=== PATIENT | female | born 1970 | race Caucasian/White ===

== ENCOUNTER 2016-11-18 17:21 | Outpatient (CLI) | payer OTHER ==
[~2016-11-18] VITALS: Ht 154.9 cm; Wt 80.0 kg
[2016-11-18 17:48] VITALS: Ht 154.9 cm; Wt 80.0 kg
[2016-11-18 17:49] VITALS: BP 117/80; PULSE 100; RESP 18
[2016-11-18] MEDS ORDERED: PREN-93 PO (17:50)
--- NOTE | 2016-11-18 18:22 | RADRPT ---
AMENDMENT: 11/18/2016 6:39:14 PM Tato Hughes M.d The placenta is posterior without evidence of abruption or previa. PROCEDURE: OB ultrasound for biophysical profile CLINICAL INDICATION: Biophysical profile. . TECHNIQUE: Multiple sonographic images of the pelvis were obtained. Transabdominal view of the gr avid uterus are available for review. COMPARISON: 08/18/2016 FINDINGS: Single intrauterine gestation. Presentation: Breech breathing movement = 2/2 tone = 2/2 motion = 2/2 KRISTI = 2/2 KRISTI = 18.4 cm heart rate: 129 beats per minute IMPRESSION: Single intrauterine gestation. Biophysical profile 03/09 Breech presentation. RPTAT: AADD .Tato Hughes MD, Date Time Electronically viewed and signed by .Tato Hughes MD, on 11/18/2016 18:40 .B/
--- NOTE | 2016-11-18 19:32 | RADRPT ---
PROCEDURE: Limited obstetric ultrasound CLINICAL INDICATION: SPOTTING TECHNIQUE: Multiple transverse and longitudinal grayscale images of the pelvis were obtained macias sabdominally and endovaginally.. COMPARISON: Biophysical profile study from the same date FINDINGS: There is a single live intrauterine gestation in a cephalic position with a heart rate of 137 bpm. The cervix is closed and measures 4.3 cm in length. Several sub-centimeter Nabothian cysts are ident ified. The placenta is posterior. There is no evidence of a placental abruption or placenta previa. RPTAT: AA IMPRESSION: The cervix is closed and measures 4.3 cm in length. Cephalic presentation. Please note that a biophysical profile study performed approximately 1 hour and 20 minutes prior to this study demonstrated a breech presentation. Physician Dylan Date Time Electronically viewed and signed by To Mustafa Physician on 11/18/2016 19:31 /
[2016-11-18 20:27] LABS: ADD UMIC YES; URINE BILIRUBIN (Dip) NEGATIVE (NEGATIVE); URINE BLOOD (Dip) 1+ (NEGATIVE); URINE COLOR LT. YELLOW (YELLOW); URINE GLUCOSE (Dip) NEGATIVE (NEGATIVE); URINE KETONES (Dip) NEGATIVE (NEGATIVE); URINE LEUKOCYTE ESTERASE (Dip) NEGATIVE (NEGATIVE); URINE NITRITE (Dip) NEGATIVE (NEGATIVE); URINE TOTAL PROTEIN (Dip) NEGATIVE (NEGATIVE); URINE UROBILINOGEN (Dip) 0.2 E.U./dL (0.1-1.0)
[2016-11-18 20:36] LABS: SQUAMOUS EPITHELIAL CELL,UR RARE
--- NOTE | 2016-11-18 21:55 | QN ---
Documentation Comment 46-year-old with IUP at 30 weeks and 4 days with care at [facility] presented with complaint of small amount of spotting today after she urinated when she wiped herself. She denied any leaking of fluid, vaginal bleeding or decreased movement. She had no other complaint. She denies any complication during her course. Physical examination: General appearance: Alert and oriented 4 patient does not appear to be in any acute distress. She is comfortable. Denies any complaints abdomen: Soft, gravid, nontender, no rebound tenderness, Fundal height consistent with gestational age NST: Category 1 and appropriate for gestational age. No contractions on the monitor observed Patient observed in triage for a couple hours and no bleeding noted. Patient denies any spotting anymore. Cervical length 4.3 PROCEDURE: Limited obstetric ultrasound CLINICAL INDICATION: SPOTTING TECHNIQUE: Multiple transverse and longitudinal grayscale images of the pelvis were obtained transabdominally and endovaginally.. COMPARISON: Biophysical profile study from the same date FINDINGS: There is a single live intrauterine gestation in a cephalic position with a heart rate of 137 bpm. The cervix is closed and measures 4.3 cm in length. Several sub-centimeter Nabothian cysts are identified. The placenta is posterior. There is no evidence of a placental abruption or placenta previa. RPTAT: AA IMPRESSION: The cervix is closed and measures 4.3 cm in length. Cephalic presentation. Please note that a biophysical profile study performed approximately 1 hour and 20 minutes prior to this study demonstrated a breech presentation. UA: Negative blood group: Obtained from [facility]: RH + AMENDMENT: 11/18/2016 6:39:14 PM Tato Hughes M.d The placenta is posterior without evidence of abruption or previa. PROCEDURE: OB ultrasound for biophysical profile CLINICAL INDICATION: Biophysical profile. . TECHNIQUE: Multiple sonographic images of the pelvis were obtained. Transabdominal view of the gravid uterus are available for review. COMPARISON: 08/18/2016 FINDINGS: Single intrauterine gestation. Presentation: Breech breathing movement = 2/2 tone = 2/2 motion = 2/2 KRISTI = 2/2 KRISTI = 18.4 cm heart rate: 129 beats per minute IMPRESSION: Single intrauterine gestation. Biophysical profile 03/09 Breech presentation. Assessment: IUP at 30 weeks and 4 days Spotting Rh+, resolved NST category 1 no evidence of labor Cervix is long and closed plan: DC patient home strict labor precaution and kick count discussed Pelvic rest Follow-up in 2-3 days with her OB office Return to triage if she has any uterine contraction, decreased movement, vaginal bleeding or any other concern FÉLIX LOPEZ MD Nov 18, 2016 21:55
--- NOTE | 2016-11-19 00:29 | TRIAGE ---
OB Triage Datetime Report Generated by CPN: 11/19/2016 00:29 Datetime: 11/18/2016 21:34 Stage of : OB Triage Labor Evaluation Frequency: x1 Monitor Mode: External Duration (sec)2399: 80 Quality: Mild Resting Tone Fritch: Relaxed Heart Rate FHR Baseline Rate: 130 Monitor Mode: External US Variability: Moderate 6-25 bpm Accelerations: 15X15 Decelerations: None Category: Category I Datetime: 11/18/2016 19:57 Stage of : OB Triage Datetime: 11/18/2016 19:52 Stage of : OB Triage Labor Evaluation Frequency: 0 Monitor Mode: External Quality: Mild Resting Tone Fritch: Relaxed Heart Rate FHR Baseline Rate: 135 Monitor Mode: External US Variability: Moderate 6-25 bpm Accelerations: 15X15 Decelerations: None Category: Category I Datetime: 11/18/2016 19:20 Stage of : OB Triage Datetime: 11/18/2016 19:17 Monitor Mode: External Monitor Mode: External US Datetime: 11/18/2016 19:13 Stage of : OB Triage Datetime: 11/18/2016 19:09 Stage of : OB Triage Datetime: 11/18/2016 18:50 Stage of : OB Triage Maternal Assessment Level of Consciousness: Fully Conscious DTR's/Clonus: DTRs 1+ Headache: Denies Breath Sounds, Left: Clear and Equal Breath Sounds, Right: Clear and Equal Nausea/Vomiting: Denies RUQ Epigastric Pain: Denies Labor Evaluation Frequency: NONE Monitor Mode: External Resting Tone Fritch: Relaxed Heart Rate FHR Baseline Rate: 125 Monitor Mode: External US Variability: Moderate 6-25 bpm Accelerations: 15X15 Decelerations: None Category: Category I Pain Assessment Pain Presence: None/Denies Pain Type: N/A Vaginal Exam Membrane Status: Intact Datetime: 11/18/2016 17:50 Maternal Assessment Level of Consciousness: Fully Conscious DTR's/Clonus: DTRs 1+ Headache: Denies Blurred Vision: No Respiratory Effort: Unlabored Breath Sounds, Left: Clear and Equal Breath Sounds, Right: Clear and Equal Nausea/Vomiting: Denies RUQ Epigastric Pain: Denies Facial Edema: None Monitor Mode: External Resting Tone Fritch: Relaxed Heart Rate FHR Baseline Rate: 125 Monitor Mode: External US Variability: Moderate 6-25 bpm Accelerations: 10X10 Decelerations: None Category: Category I Pain Assessment Pain Presence: None/Denies Pain Type: N/A Vaginal Exam Membrane Status: Intact Datetime: 11/18/2016 17:45 Assessment Type: Triage Maternal Assessment Level of Consciousness: Fully Conscious DTR's/Clonus: DTRs 2+; No Clonus Headache: Denies Blurred Vision: No Respiratory Effort: Unlabored; Regular Rhythm; Equal Expansion Breath Sounds, Left: Clear and Equal Breath Sounds, Right: Clear and Equal Nausea/Vomiting: Denies RUQ Epigastric Pain: Denies Lower Extremities Edema: None Degree: None Upper Extremities Edema: None Degree: None Facial Edema: None Fall Risk Assessment History of Falling: (0) No Secondary Diagnosis: (0) No Ambulatory Aid: (0) Bedrest/Nurse Assist IV Therapy: (0) No Gait: (0) Normal/Bedrest/Immobile Mental Status: (0) Oriented to Own Ability Fall Score: 0 Fall Risk Score Definition: No Risk: No action required Datetime: 11/18/2016 17:44 EGA: 30.4 Datetime: 11/18/2016 17:30 Time of Arrival: 11/18/2016 17:30 Arrived By: Ambulatory Arrived From: Home Chief Complaint: PT CAME IN Movement: Present Contractions: Denies/Absent Rupture of Membranes: Denies Vaginal Discharge: Denies Recent Sexual Intercouse: Denies Abdominal Trauma: Not Applicable Patient Complaints: Other Additional Patient Complaints: NONE Time Provider Notified: 11/18/2016 17:30 Provider Notified: ANKUR Initial Plan: NST HAFSA BPP placenta
== END 2016-11-18 21:50 | disposition home or self-care (01) ==
LOC: OBT 17:21 → L-D 17:22 → OBT 21:50
PROVIDERS: ATTEND Obstetrics & Gynecology
DX: O26.853 Spotting complicating pregnancy, third trimester (principal); Z3A.30 30 weeks gestation of pregnancy; O09.513 Supervision of elderly primigravida, third trimester; O26.893 Other specified pregnancy related conditions, third trimester; Z67.90 Unspecified blood type, Rh positive
CPT/HCPCS: 76817; 76818; 81001; Z7500; 81003; G0463

== ENCOUNTER 2016-12-25 11:22 | Outpatient (CLI) | payer MEDICAID, OTHER ==
[~2016-12-25] VITALS: Ht 154.9 cm; Wt 83.4 kg
[2016-12-25 11:20] VITALS: Ht 154.9 cm; Wt 83.4 kg
[2016-12-25 11:21] VITALS: BP 114/71; PULSE 101; RESP 20
[~2016-12-25 11:22] MED LIST: PREN-93 PO
[2016-12-25] MEDS ORDERED: CALC600T11 PO (11:23)
[2016-12-25] MEDS ORDERED: FERR325C PO (11:23)
--- NOTE | 2016-12-25 11:56 | RADRPT ---
PROCEDURE: Obstetrical ultrasound CLINICAL INDICATION: growth, pain TECHNIQUE: Multiple sonographic images of the pelvis were obtained. The images were reviewed on a PACS workstation. COMPARISON: Obstetrical ultrasound from 11/18/2016 FINDINGS: The cervix is not well visualized. There is a single viable intrauterine gestation. Cardiac activity is present with 136 beats per minute. There is a vertex presentation. The placenta is posterior. There is no evidence for an abruption or placenta previa. There is a subjectively normal amount of amniotic fluid. Measurements were made in order to determine age. The results are as follows (cm): BPD =8.71 HC =31.40 AC =31.78 FL =6.50 Estimated gestational age by ultrasound of approximately 34 weeks, 6 days. The estimated date of delivery by ultrasound is 01/30/2017. Estimated gestational age by LMP of approximately 35 weeks, 6 days. The estimated date of delivery by LMP is 01/23/2017. EFW = 2572 grams (27th percentile) IMPRESSION: Single viable intrauterine gestation of approximately 34 weeks, 6 days . The estimated date of delivery is 01/30/2017 . Dating by ultrasound is within 1 week of dating by LMP. Cephalic presentation. Estimated weight is in the 27th percentile. RPTAT: EE Physician Dylan Date Time Electronically viewed and signed by Physician Dylan on 12/25/2016 11:56 LATASHA
--- NOTE | 2016-12-25 12:32 | RADRPT ---
PROCEDURE: US OB biophysical profile. CLINICAL INDICATION: evaluation TECHNIQUE: Multiple sonographic images of the pelvis were obtained. The images were reviewed on a PACS workstation. COMPARISON: Obstetrical ultrasound from 11/18/2016 FINDINGS: There is a single viable intrauterine gestation. Cardiac activity is present with 159 beats per min karthikeyan. There is a vertex presentation. The placenta is posterior. There is no evidence of placental abruption. There is a normal amount of amniotic fluid with an KRISTI = 20.0 cm. Biophysical profile: movement 2/2 tone 2/2. breathing 2/2 KRISTI 2/2 Total 03/09 RPTAT: AA . IMPRESSION: Normal biophysical profile. Physician Dylan Date Time Electronically viewed and signed by Physician Dylan on 12/25/2016 12:32 /
--- NOTE | 2016-12-25 12:47 | TRIAGE ---
OB Triage Datetime Report Generated by CPN: 12/25/2016 12:47 Datetime: 12/25/2016 12:41 Stage of : OB Triage Labor Evaluation Frequency: 0 Monitor Mode: External Duration (sec)2399: 0 Quality: Mild Contraction Comments: PT DENIES UC'S Heart Rate FHR Baseline Rate: 135 Monitor Mode: External US Variability: Moderate 6-25 bpm Accelerations: 15X15 Decelerations: None Category: Category I Datetime: 12/25/2016 12:04 Labor Evaluation Frequency: 0 Monitor Mode: External Resting Tone [place]: Relaxed Contraction Comments: PT DENIES UC'S NO UC'S NOTED AT THIS TIME Heart Rate FHR Baseline Rate: 145 Monitor Mode: External US Variability: Moderate 6-25 bpm Accelerations: 10X10 Decelerations: None Category: Category I Datetime: 12/25/2016 11:27 Maternal Assessment Level of Consciousness: Fully Conscious DTR's/Clonus: DTRs 2+; No Clonus Headache: Denies Blurred Vision: No Respiratory Effort: Unlabored; Regular Rhythm; Equal Expansion Breath Sounds, Left: Clear and Equal Breath Sounds, Right: Clear and Equal Nausea/Vomiting: Denies RUQ Epigastric Pain: Denies Facial Edema: None Fall Risk Assessment History of Falling: (0) No Secondary Diagnosis: (0) No Ambulatory Aid: (0) Bedrest/Nurse Assist IV Therapy: (0) No Gait: (0) Normal/Bedrest/Immobile Mental Status: (0) Oriented to Own Ability Fall Score: 0 Fall Risk Score Definition: No Risk: No action required Datetime: 12/25/2016 11:26 Time of Arrival: 12/25/2016 11:11 EGA: 35.6 Arrived By: Ambulatory Arrived From: Home Chief Complaint: came in with orders for bpp/efw Movement: Present Contractions: Denies/Absent Rupture of Membranes: Denies Vaginal Bleeding: None Vaginal Discharge: Denies Recent Sexual Intercouse: Denies Abdominal Trauma: Not Applicable Patient Complaints: None Time Provider Notified: 12/25/2016 12:45 Provider Notified: DR. PASCUAL Initial Plan: nst , bpp, efw Maternal Assessment Level of Consciousness: Fully Conscious DTR's/Clonus: DTRs 2+; No Clonus Headache: Denies Blurred Vision: No Respiratory Effort: Unlabored; Regular Rhythm; Equal Expansion Breath Sounds, Left: Clear and Equal Breath Sounds, Right: Clear and Equal Nausea/Vomiting: Denies RUQ Epigastric Pain: Denies Facial Edema: None Fall Risk Assessment History of Falling: (0) No Secondary Diagnosis: (0) No Ambulatory Aid: (0) Bedrest/Nurse Assist IV Therapy: (0) No Gait: (0) Normal/Bedrest/Immobile Mental Status: (0) Oriented to Own Ability Fall Score: 0 Fall Risk Score Definition: No Risk: No action required Datetime: 11/18/2016 17:45 Fall Score: 0 Fall Risk Score Definition: No Risk: No action required Datetime: 11/18/2016 17:44 EGA: 30.4
--- NOTE | 2016-12-25 14:13 | TRIAGE ---
OB Triage Datetime Report Generated by CPN: 12/25/2016 14:13 Datetime: 12/25/2016 14:00 Frequency: 0 Duration (sec)2399: 0 Contraction Comments: PT DENIES UC'S NO UC'S NOTED FHR Baseline Rate: 130 Monitor Mode: External US Variability: Moderate 6-25 bpm Accelerations: 15X15 Decelerations: None Category: Category I
--- NOTE | 2016-12-27 15:40 | QN ---
Documentation Comment Late entry 46 years old female 1 para 0 EDC January 23 referred to triage for ultrasound evaluation of growth JALYN PASCUAL MD December 27, 2016 15:40
== END 2016-12-25 14:20 | disposition home or self-care (01) ==
LOC: OBT 11:22 → L-D 11:22 → OBT 14:20
PROVIDERS: ATTEND Obstetrics & Gynecology
DX: O26.893 Other specified pregnancy related conditions, third trimester (principal); O09.523 Supervision of elderly multigravida, third trimester; Z3A.35 35 weeks gestation of pregnancy
CPT/HCPCS: 76815; 76818; Z7500; G0463

== ENCOUNTER 2017-01-25 11:18 | Outpatient (CLI) | payer OTHER ==
[~2017-01-25] VITALS: Ht 154.9 cm; Wt 85.7 kg
[~2017-01-25 11:18] MED LIST changes: +CALC600T11 PO; +FERR325C PO
[2017-01-25 11:58] VITALS: Ht 154.9 cm; Wt 85.7 kg
[2017-01-25 11:59] VITALS: BP 111/70; PULSE 84; RESP 18
--- NOTE | 2017-01-25 12:47 | RADRPT ---
PROCEDURE: OB ultrasound for biophysical profile CLINICAL INDICATION: Contractions TECHNIQUE: Multiple sonographic images of the pelvis were obtained. Transabdominal views of the g ravid uterus are available for review. The images were reviewed on a PACS workstation. COMPARISON: None FINDINGS: breathing movement = 2/2 tone = 2/2 motion = 2/2 KRISTI = 2/2 KRISTI = 11.1 cm Single live intrauterine with cardiac activity of 129 bpm. position is cephal ic. The placenta is posterior. IMPRESSION: 1. Single live intrauterine gestation. 2. Biophysical profile = 88. 3. KRISTI = 11.1 cm. RPTAT: HH .Nini Calvillo MD, MD Date Time Electronically viewed and signed by .Nini Calvillo MD, on 01/25/2017 12:47 .G/
--- NOTE | 2017-01-25 13:43 | RADRPT ---
PROCEDURE: Obstetrical ultrasound CLINICAL INDICATION: MACROSOMIA, contractions TECHNIQUE: Multiple sonographic images of the pelvis were obtained. The images were reviewed on a PACS workstation. COMPARISON: Obstetrical ultrasound from 12/25/2016 FINDINGS: The cervix is not well visualized. There is a single viable intrauterine gestation. Cardiac activity is present with 144 beats per minute. There is a vertex presentation. The placenta is posterior. There is no evidence for an abruption or placenta previa. There is a normal amount of amniotic fluid with an KRISTI = 11.1 cm. Measurements were made in order to determine age. The results are as follows (cm): BPD =9.07 HC =32.96 AC =35.12 FL =7.27 Estimated gestational age by ultrasound of approximately 37 weeks, 5 days. The estimated date of delivery by ultrasound is 02/10/2017. Estimated gestational age by LMP of approximately 40 weeks, 1 day. The estimated date of delivery by LMP is 01/24/2017. EFW = 3416 grams (31st percentile) IMPRESSION: Single viable intrauterine gestation of approximately 37 weeks, 5 days . The estimated date of delivery is 02/10/2017 . Dating by ultrasound is within 17 days of dating by LMP. Cephalic presentation. Normal KRISTI. Estimated weight is in the 31st percentile. RPTAT: EE Physician Dylan Date Time Electronically viewed and signed by Physician Dylan on 01/25/2017 13:42 /
== END 2017-01-25 15:05 | disposition home or self-care (01) ==
LOC: OBT 11:18 → L-D 11:20 → OBT 15:05
PROVIDERS: ATTEND Obstetrics & Gynecology
DX: O62.8 Other abnormalities of forces of labor (principal); O09.523 Supervision of elderly multigravida, third trimester; Z3A.40 40 weeks gestation of pregnancy
CPT/HCPCS: 76815; 76818; Z7500; G0463

== ENCOUNTER 2017-01-27 09:00 | Inpatient (IN) | payer OTHER ==
[~2017-01-27] VITALS: Ht 154.9 cm; Wt 84.6 kg
[2017-01-28 00:25] VITALS: BP 9/60; PULSE 56; RESP 18
[2017-01-28 06:40] VITALS: BP 110/73; PULSE 99; RESP 16; Ht 154.9 cm; Wt 84.6 kg
[2017-01-28] MEDS ORDERED: CEFAZOLIN 2 GM/50 ML (PMX) 50 ML IV SCH (07:30)
[2017-01-28] MEDS ORDERED: MISOPROSTOL 200 MCG TAB PR PRN ×2 (07:30→14:30)
[2017-01-28] MEDS ORDERED: OXYTOCIN 30 UNITS/LR 500 ML IV PRN ×2 (07:30→14:30)
[2017-01-28] MEDS ORDERED: METHYLERGONOVINE 0.2 MG INJ IM PRN ×2 (07:30→14:30)
[2017-01-28] MEDS ORDERED: CARBOPROST 250 MCG INJ IM PRN ×2 (07:30→14:30)
[2017-01-28] MEDS ORDERED: OXYTOCIN 30 UNITS/LR 500 ML IV SCH ×2 (07:30→14:09)
[2017-01-28] MEDS: LACTATED RINGER'S 1,000 ML IV SCH ×2 (07:40→08:52)
[2017-01-28 07:59] LABS: ADD SCAN DIFF NO
[2017-01-28 08:04] LABS: BASOPHILS % 0.3 % (0.0-2.0); EOSINOPHILS # 0.1 10^3/ul (0.0-0.5); EOSINOPHILS % 0.8 % (0.0-7.0); HEMATOCRIT 38.5 % (37.0-47.0); HEMOGLOBIN 13.3 g/dl (12.0-16.0); LYMPHOCYTES # 2.8 10^3/ul (0.8-2.9); LYMPHOCYTES % 27.3 % (15.0-51.0); MEAN CORPUSCULAR HEMOGLOBIN 32.8 pg (29.0-33.0); MEAN CORPUSCULAR HGB CONC 34.5 g/dl (32.0-37.0); MEAN CORPUSCULAR VOLUME 95.1 fl (82.0-101.0); MEAN PLATELET VOLUME 10.7 fl (7.4-10.4); MONOCYTE # 0.8 10^3/ul (0.3-0.9); MONOCYTES % 7.6 % (0.0-11.0); NEUTROPHIL # 6.6 10^3/ul (1.6-7.5); NEUTROPHILS % 63.6 % (39.0-77.0); PLATELET COUNT 221 10^3/UL (140-415); RED BLOOD COUNT 4.05 10^6/ul (4.20-5.40); RED CELL DISTRIBUTION WIDTH 13.1 % (11.5-14.5); WHITE BLOOD COUNT 10.4 10^3/ul (4.8-10.8)
[2017-01-28 08:22] LABS: INR 0.93; PROTIME 12.5 Sec (12.2-14.2)
[2017-01-28 08:23] LABS: PARTIAL THROMBOPLASTIN TIME 26.7 Sec (25.0-35.0)
[2017-01-28] MEDS ORDERED: PHENYLephrine (100 MCG/ML) 5ML SYG ONE (09:05)
[2017-01-28] MEDS ORDERED: morphine SULFATE/PF (10 MG/10 ML) INJ ONE (09:05)
[2017-01-28] MEDS ORDERED: FENTAnyl 50 MCG/ML VIAL ONE (09:05)
[2017-01-28] MEDS ORDERED: HYDROmorphONE 1 MG/ML SYG IV PRN ×2 (09:30)
[2017-01-28] MEDS ORDERED: ONDANSETRON 4 MG INJ IV PRN (09:30)
[2017-01-28] MEDS ORDERED: ZOLPIDEM 5 MG TAB PO PRN (09:30)
[2017-01-28] MEDS ORDERED: KETOROLAC 30 MG INJ IV PRN (09:30)
[2017-01-28] MEDS ORDERED: DIPHENHYDRAMINE 50 MG INJ IV PRN (09:30)
[2017-01-28] MEDS ORDERED: NALOXONE (0.4 MG/ML) INJ IV PRN (09:30)
[2017-01-28] MEDS ORDERED: DEXAMETHASONE 4 MG/ML 1 ML INJ ONE (09:44)
[2017-01-28] MEDS ORDERED: ONDANSETRON 4 MG INJ ONE (09:45)
--- NOTE | 2017-01-28 09:50 | HP ---
Date/Time of Note Date/Time of Note DATE: 01/28/17 TIME: 09:32 OB - History Hx of Present Free Text/Dictation This is a 45 years old female 40 weeks and 5 days 1 para 0 with a EDC of January 23, 2017 admitted to [facility] with request for elective primary section patient has been counseled regarding this procedure and suggested a trial of labor with induction, patient declined after informing her of complication of the section including bowel bladder injury infection hemorrhage and hematoma ,she would like to proceed with this operation This patient has been under the care of the [facility] and her was not complicated with gestational diabetes -induced hypertension or any other medical or surgical conditions [employer] history [place] at age 14 history of regular periods. Allergy denies allergy to any known medication Social habit denies a smoking drinking or using illicit drugs Review of system within normal Physical examination 5 feet 1 187 pounds total weight gain during the 47 temperature 98.4 pulse 90 respirations 16 blood pressure 132/83 Head ears nose and throat negative Neck supple no thyromegaly Lungs clear to P&A Heart normal sinus rhythm no murmur Abdomen fundal height 37 cm from symphysis pubis heart rate category 1 Pelvic examination; normal Martius introitus normal vagina cervix closed thick presenting part vertex ballotable ,sharp pubic arch less than 60 angle Extremities no edema Impression intrauterine at 40 weeks 5 day patient declined trial of labor with induction requesting elective delivery, she was counseled regarding the complication of the surgery including bowel and bladder injury infection wound she would like to proceed with the operation. Estimated Due Date: Jan 23, 2017 : 1 Para: 0 Care: Good Care Ultrasounds: Normal mid trimester US Obstetrical Complications: None Past Family/Social History * Past Medical, Surgical, Family and Obstetric Histories reviewed from chart. Rubella: immune RPR/VDRL: Negative GBS Status: Negative HBsAG: Negative OB Admission Exam Vital Signs Vital Signs Vital Signs Date Time Temp Pulse Resp B/P Pulse Ox O2 Delivery O2 Flow Rate FiO2 01/28/17 06:40 98.4 99 16 110/73 Room Air Physical Exam HEENT: WNL Heart: Rhythm Normal Lungs: Clear, Equal Abdomen: WNL Extremities: Normal Reflexes: Normal Cervical Dilatation: None Effacement: 0% Station: Ballotable Membranes: Intact Heart Rate: 130's Decelerations: No Decelerations Varibility: Moderate Contractions on Admission: None Last 72 hours Lab Results CBC & BMP 01/28/17 07:35 OB Assessment/Plan Reason for admission: other ( 40 weeks 5 days declined trial of labor requested elective delivery) Plan: Section JALYN PASCUAL MD Jan 28, 2017 09:44
--- NOTE | 2017-01-28 10:48 | OPR ---
Operative Report Planned Procedure Free Text/Dictation 46 years old female 1 para 0 EDC January 23, 2017 declined trial of labor request for elective primary she has been counseled regarding the complication of the section including but not limited to bowel and bladder injury infection wound hemorrhage and hematoma she would like to proceed with this operation Procedure date Jan 28, 2017 Procedure(s) Primary Performed by: JALYN PASCUAL MD Assisting provider: LEILANI VANN MD Anesthesiologist: ABEBA WADDELL Pre-procedure diagnosis 40 weeks 4 days patient declined trial of labor request elective section Anesthesia Type: spinal Procedure Description Under satisfactory spinal anesthesia, the patient was prepped and draped and placed in a supine position, tilted to the left. Pfannenstiel incision was made , carried through the subcutaneous tissue. Bleeders brought under control with electrocautery. Fascia incised to the length of the incision. Rectus muscles from the fascia, divided in midline. Peritoneum exposed, entered through a transverse incision. Exploration of abdomen revealed gravid uterus at term normal-appearing tubes and ovaries bladder flap was developed, Transverse incision was made in the lower segment of the uterus. Amniotic sac ruptured. , [Clear] amniotic fluid noted. Live baby boy was delivered from occiput posterior Nasal oropharyngeal suction was performed, baby was handed to the team for immediate attention patient received 20 units of Pitocin. placenta delivered manually inspected it was intact. Uterine cavity cleaned with wet sponge and drainage established. Uterus closed in 2 layers using [#1 Monocryl] in continuous fashion. Peritoneal cavity irrigated with warm saline. Sponge, needle and instrument count reported to be correct. Abdominal peritoneum closed with 2-0 chromic catgut] continuously. Rectus muscle approximated with [interrupted 2-0 chromic catgut]. Fascia closed with [#0 PDS] subcutaneous tissue approximated with several interrupted 2-0 chromic catgut, skin closed with brian. Estimated blood loss 600 mL. Urine bag contained [200] mL of clear urine. Post-Procedure Post-procedure diagnosis Primary Findings: Live Baby boy [], Apgars 8 and [9], weight [], position [occiput posterior], [ ] presentation [vertex] nuchal cord 1 Complications: None Pt Condition post procedure: stable Physician Certification I, the undersigned physician, hereby certify that I have discussed the procedure described in this consent form with this patient (or the patient's legal human resources representative), including: * The risk and benefits of the procedure; * Any adverse reactions that may reasonably be expected to occur; * Any alternative efficacious methods of treatment which may be medically viable ; * The potential problems that may occur during recuperation; * Potential for blood transfusion and associated risks/benefits; and * Any research or economic interest I may have regarding this treatment. I further certify that the patient/legally responsible person was encouraged to ask question and that all questions were answered. JALYN PASCUAL MD Jan 28, 2017 10:40
[2017-01-28] MEDS ORDERED: ACETAMINOPHEN/CODEINE #3 TAB PO PRN ×2 (14:30)
[2017-01-28] MEDS ORDERED: OXYCODONE/ACETAMINOPHEN (5/325) TAB PO PRN (14:30)
[2017-01-28] MEDS ORDERED: LANOLIN 7 GM TUBE TOP PRN (14:30)
[2017-01-28] MEDS ORDERED: CEFAZOLIN 1 GM/50 ML (PMX) 50 ML IVPB SCH (14:30)
[2017-01-28 14:46] VITALS: BP 139/73; RESP 19
[2017-01-28 15:11] VITALS: BP 125/75; PULSE 62; RESP 20
[2017-01-28 15:45] VITALS: BP 118/67; PULSE 57; RESP 20
[2017-01-28 20:00] VITALS: BP 108/67; PULSE 62; RESP 18
[2017-01-29] MEDS ORDERED: LACTATED RINGER'S 1,000 ML IV SCH (01:00)
[2017-01-29 03:30] VITALS: BP 101/65; PULSE 59; RESP 18
[2017-01-29 08:11] LABS: BASOPHILS % 0.3 % (0.0-2.0); EOSINOPHILS % 0.3 % (0.0-7.0); HEMOGLOBIN 11.9 g/dl (12.0-16.0); LYMPHOCYTES # 2.7 10^3/ul (0.8-2.9); LYMPHOCYTES % 21.7 % (15.0-51.0); MEAN CORPUSCULAR HEMOGLOBIN 32.8 pg (29.0-33.0); MEAN CORPUSCULAR VOLUME 96.4 fl (82.0-101.0); MEAN PLATELET VOLUME 10.8 fl (7.4-10.4); MONOCYTES % 8.3 % (0.0-11.0); NEUTROPHIL # 8.5 10^3/ul (1.6-7.5); NEUTROPHILS % 68.9 % (39.0-77.0); PLATELET COUNT 203 10^3/UL (140-415); RED BLOOD COUNT 3.63 10^6/ul (4.20-5.40); WHITE BLOOD COUNT 12.3 10^3/ul (4.8-10.8)
[2017-01-29 08:16] LABS: ADD SCAN DIFF NO
[2017-01-29 08:45] VITALS: BP 99/69; PULSE 62; RESP 19
[2017-01-29] MEDS: SENNA/DOCUSATE NA (8.6MG/50MG) TAB PO SCH ×2 (10:08→20:48)
[2017-01-29] MEDS: OXYCODONE/ACETAMINOPHEN (5/325) TAB PO PRN ×2 (10:09→17:55)
[2017-01-29] MEDS: IBUPROFEN 600 MG TAB PO SCH ×2 (12:57→17:54)
[2017-01-29 16:08] VITALS: BP 112/73; PULSE 68; RESP 20
--- NOTE | 2017-01-29 16:23 | PN ---
Date/Time of Note Date/Time of Note DATE: 01/29/17 TIME: 16:22 OB Subjective Subjective Subjective Post day 1 Afebrile abdomen soft mildly distended bowel sounds lochia moderate extremity normal ambulation encouraged diet advanced as tolerated Laboratory Tests Test 01/29/17 07:03 White Blood Count 12.310^3/ul Red Blood Count 3.6310^6/ul Hemoglobin 11.9g/dl Hematocrit 35.0% Mean Corpuscular Volume 96.4fl Mean Corpuscular Hemoglobin 32.8pg Mean Corpuscular Hemoglobin Concent 34.0g/dl Red Cell Distribution Width 13.0% Platelet Count 77823^3/UL Mean Platelet Volume 10.8fl Neutrophils % 68.9% Lymphocytes % 21.7% Monocytes % 8.3% Eosinophils % 0.3% Basophils % 0.3% Nucleated Red Blood Cells % 0.0/100WBC Neutrophils # 8.510^3/ul Lymphocytes # 2.710^3/ul Monocytes # 1.010^3/ul Eosinophils # 0.010^3/ul Basophils # 0.010^3/ul Nucleated Red Blood Cells # 0.010^3/ul Current Medications Medications (Trade) Dose Ordered Sig/Francie Route PRN Reason Start Time Stop Time Status Last Admin Dose Admin Lactated Ringer's 1,000 ml @ 125 mls/hr Q8H IV 01/28/17 07:22 01/28/17 14:12 DC 01/28/17 08:52 Cefazolin Sodium/ Dextrose 50 ml @ 100 mls/hr ONCE IV 01/28/17 07:30 01/28/17 14:12 DC Oxytocin/Lactated Ringer's 500 ml @ 125 mls/hr ONCE IV 01/28/17 07:30 01/28/17 14:12 DC 01/28/17 11:44 Oxytocin/Lactated Ringer's 500 ml @ 0 mls/hr ONCE PRN IV For Hemorrhage Management 01/28/17 07:30 Cancel Methylergonovine Maleate (Methergine) 0.2 mg ONCE PRN IM VAGINAL BLEEDING 01/28/17 07:30 Cancel Carboprost Tromethamine (Hemabate) 250 mcg ONCE PRN IM VAGINAL BLEEDING 01/28/17 07:30 Cancel Misoprostol (Cytotec) 1,000 mcg ONCE PRN [place] VAGINAL BLEEDING 01/28/17 07:30 Cancel Morphine Sulfate (Duramorph) 10 mg STK-MED ONCE .ROUTE 01/28/17 09:05 01/28/17 09:06 DC Fentanyl (Sublimaze) 100 mcg STK-MED ONCE .ROUTE 01/28/17 09:05 01/28/17 09:06 DC Phenylephrine HCl (Virgilio-Synephrine Inj Syg) 500 mcg STK-MED ONCE .ROUTE 01/28/17 09:05 01/28/17 09:06 DC Naloxone HCl (Narcan) 0.1 mg Q2M PRN IV FOR RESP RATE 8 OR LESS 01/28/17 09:30 01/28/17 14:12 DC Ketorolac Tromethamine (Toradol) 30 mg Q6H PRN IV PAIN 01/28/17 09:30 01/28/17 14:14 DC Hydromorphone HCl (Dilaudid) 0.2 mg Q3H PRN IV PAIN LEVEL 1-5 01/28/17 09:30 01/28/17 14:14 DC Hydromorphone HCl (Dilaudid) 0.4 mg Q3H PRN IV PAIN LEVEL 6-10 01/28/17 09:30 01/28/17 14:14 DC Diphenhydramine HCl (Benadryl) 25 mg Q6H PRN IV ITCHING 01/28/17 09:30 01/28/17 14:14 DC Ondansetron HCl (Zofran Inj) 4 mg Q6H PRN IV NAUSEA AND/OR VOMITING 01/28/17 09:30 01/28/17 14:14 DC Zolpidem Tartrate (Ambien) 5 mg HS MAY REPEAT X 1 PRN PO INSOMNIA 01/28/17 09:30 01/28/17 14:14 DC Miscellaneous Information (* Miscellaneous Pharmacy Order) Duramorph: .2 mg Spi... GIVEN XX 01/28/17 09:30 01/28/17 14:12 DC Dexamethasone (Decadron) 4 mg STK-MED ONCE .ROUTE 01/28/17 09:44 01/28/17 09:45 DC Ondansetron HCl (Zofran Inj) 4 mg STK-MED ONCE .ROUTE 01/28/17 09:45 01/28/17 09:46 DC Acetaminophen/ Codeine Phosphate (Tylenol No.3) 1 tab Q4H PRN PO PAIN LEVEL 4-6 01/28/17 14:30 Acetaminophen/ Codeine Phosphate (Tylenol No.3) 2 tab Q4H PRN PO PAIN LEVEL 7-10 01/28/17 14:30 Oxycodone/ Acetaminophen (Percocet (5/ 325)) 1 tab Q4H PRN PO PAIN LEVEL 4-6 01/28/17 14:30 01/29/17 10:09 Oxycodone/ Acetaminophen (Percocet (5/ 325)) 2 tab Q4H PRN PO PAIN LEVEL 7-10 01/28/17 14:30 Ibuprofen (Motrin) 600 mg Q6 PO 01/29/17 12:00 01/29/17 12:57 Simethicone (Mylicon) 160 mg Q8H PRN PO DISTENSION/GAS/BLOATING 01/28/17 14:30 Senna/Docusate Sodium (Senokot-S) 1 tab BID PO 01/29/17 09:00 01/29/17 10:08 Lanolin (Gaw-V-Vsphsq) 1 applic BEDSIDE MEDICATION PRN TOP BEDSIDE FOR TABITHA TO NIPPLES 01/28/17 14:30 Diphtheria/ Tetanus/Acell Pertussis 0.5 ml 0.5 ml ONCE ONCE IM* 01/31/17 09:00 01/31/17 09:01 Oxytocin/Lactated Ringer's 500 ml @ 0 mls/hr ONCE PRN IV For Hemorrhage Management 01/28/17 14:30 01/28/17 15:52 Methylergonovine Maleate (Methergine) 0.2 mg ONCE PRN IM VAGINAL BLEEDING 01/28/17 14:30 Carboprost Tromethamine (Hemabate) 250 mcg ONCE PRN IM VAGINAL BLEEDING 01/28/17 14:30 Misoprostol 1000 mcg 1,000 mcg ONCE PRN [place] VAGINAL BLEEDING 01/28/17 14:30 Cefazolin Sodium 50 ml @ 100 mls/hr ONCE IVPB 01/28/17 14:30 01/28/17 14:59 DC 01/28/17 15:52 Oxytocin/Lactated Ringer's 500 ml @ 125 mls/hr Q4H IV 01/28/17 14:09 01/29/17 10:05 DC 01/28/17 20:46 Lactated Ringer's (Lr) 1,000 ml @ 125 mls/hr Q8H IV 01/29/17 01:00 01/29/17 10:05 DC 01/29/17 00:53 JALYN PASCUAL MD Jan 29, 2017 16:23
[2017-01-29 20:45] VITALS: BP 117/69; PULSE 67; RESP 18
[2017-01-30] MEDS: IBUPROFEN 600 MG TAB PO SCH ×5 (00:02→23:59)
[2017-01-30 04:00] VITALS: BP 109/62; PULSE 61; RESP 18
[2017-01-30 07:30] VITALS: BP 112/67; PULSE 73; RESP 20
[2017-01-30] MEDS: OXYCODONE/ACETAMINOPHEN (5/325) TAB PO PRN (10:01)
[2017-01-30] MEDS: SENNA/DOCUSATE NA (8.6MG/50MG) TAB PO SCH ×2 (10:02→20:58)
--- NOTE | 2017-01-30 13:46 | PN ---
Date/Time of Note Date/Time of Note DATE: 01/30/17 TIME: 13:45 OB Subjective Subjective Subjective Post date Afebrile vital signs stable abdomen soft uterus firm lochia normal incision good bowel sounds no bowel movement ambulation encouraged JALYN PASCUAL MD Jan 30, 2017 13:46
[2017-01-30] MEDS ORDERED: NA PHOSPHATE/BIPHOS 133 ML ENEMA PR ONE (14:00)
[2017-01-30 15:30] VITALS: BP 110/77; PULSE 86; RESP 20
[2017-01-30 19:50] VITALS: PULSE 70; RESP 18
[2017-01-31 04:00] VITALS: PULSE 80; RESP 18
[2017-01-31] MEDS: IBUPROFEN 600 MG TAB PO SCH ×2 (05:31→12:17)
[2017-01-31 08:15] VITALS: BP 133/71; PULSE 71
[2017-01-31] MEDS: SENNA/DOCUSATE NA (8.6MG/50MG) TAB PO SCH (08:40)
[2017-01-31] MEDS: OXYCODONE/ACETAMINOPHEN (5/325) TAB PO PRN (08:41)
[2017-01-31] MEDS ORDERED: DIPHTH/TET/ACEL PERTUSS (ADULT) 0.5 ML VIAL IM* ONE (09:00)
--- NOTE | 2017-01-31 09:39 | QN ---
Documentation Comment s/p c/s. elective primary, POD # 1 Subjective: no complaint except for mild LAP Objective: Afebrile, VSS NAD A&O Abdomen: soft, appropriate tender Incision: no sign of bleeding/infection mild lochia Extremity: 1+ edema bilaterally Assessment: S/p C/S Recovering Well Plan: current care ASIM STEVENS MD Jan 31, 2017 09:38
--- NOTE | 2017-01-31 09:47 | DS ---
Date/Time of Note Date/Time of Note DATE: 01/31/17 TIME: 09:46 Obstetrical Discharge Record Final Diagnosis Final Diagnosis: Term delivered Other Final Diagnosis s/p primary elective Section Section: Primary Complications Augmentation: No Induction: No Rupture of Membranes: No Condition on Discharge Physical Assessment Voiding: Yes Bowel Movement: Yes Breast: Soft, non-tender, Filling Fundus: Firm Abdomen and Incision: soft, appropriate tender Calf Tenderness: No Patient Condition: Good ASIM STEVENS MD Jan 31, 2017 09:47
== END 2017-01-31 13:30 | disposition home or self-care (01) | DRG 766 ==
LOC: L-D 01-28 06:00 → PP1 01-28 15:35
PROVIDERS: ADMIT Obstetrics & Gynecology; ATTEND Obstetrics & Gynecology
PROC: 10D00Z1 Extraction of Products of Conception, Low, Open Approach (ICD-10-PCS; principal; 2017-01-28 09:00)
DX: O48.0 Post-term pregnancy (principal); Z37.0 Single live birth; Z3A.40 40 weeks gestation of pregnancy
CPT/HCPCS: 85025; 85610; 85730; 86592; 86850; 86900; 86901; 87340; 90715; 99464; J0690; J1100; J2274; J2370; J2405; J2590; J3010; J7120

== ENCOUNTER 2017-01-27 11:46 | Outpatient (CLI) | payer OTHER ==
[~2017-01-27] VITALS: Ht 154.9 cm; Wt 85.0 kg
[2017-01-27 11:50] VITALS: Ht 154.9 cm; Wt 85.0 kg
[2017-01-27 11:51] VITALS: BP 119/80; PULSE 120
--- NOTE | 2017-01-27 12:33 | RADRPT ---
PROCEDURE: Biophysical profile CLINICAL INDICATION: distress. Post dates. TECHNIQUE: Color and brooks-scale ultrasound images of an intrauterine gestation were obtained. COMPARISON: January 25, 2017 FINDINGS: A single live intrauterine gestation is identified in cephalic position with an estimated hear t rate of 144 beats per minute. The placenta is located posteriorly and is a grade III. The cervix is obscured by head shadows. No evidence of abruption identified. KRISTI is 15.6 cm. movement 2/2. tone 2/2. breathing movement 2/2. Qualitative AFV 2/2 Total biophysical profile 03/09 IMPRESSION: 03/09 biophysical profile. RPTAT: AA .Patrick Harris MD, Date Time Electronically viewed and signed by .Patrick Harris MD, MD on 01/27/2017 12:32 .P/
--- NOTE | 2017-01-27 13:43 | PN ---
Triage Information Date/Time January 27 at 1334 Weeks of Gestation 40 weeks 4 days : 1 Para: 0 Diabetes: none Hypertention: none Objective Vital Signs Date Time Temp Pulse Resp B/P Pulse Ox O2 Delivery O2 Flow Rate FiO2 01/27/17 11:51 98.1 120 119/80 Heart Rate: 130's Exam 1 para 0 at 40 weeks 4 days seen at triage unit for testing biophysical profile 03/09 estimated weight 3416 g patient declined trial of labor by induction requested delivery she is scheduled for primary elective for January 28, 2017 at 9 AM Assessment/Plan Plan of elective section, requested by the patient discussed she is to schedule for primary January 28 at 9 AM JALYN PASCUAL MD Jan 27, 2017 13:43
== END 2017-01-27 13:35 | disposition home or self-care (01) ==
LOC: OBT 11:46 → L-D 11:46 → OBT 13:35
PROVIDERS: ATTEND Obstetrics & Gynecology
DX: O36.8130 Decreased fetal movements, third trimester, not applicable or unspecified (principal); Z3A.40 40 weeks gestation of pregnancy
CPT/HCPCS: 76818; Z7500; G0463

== ENCOUNTER 2018-02-06 11:14 | Emergency (ER) | END 2018-02-06 12:08 | disposition home or self-care (01) ==

== ENCOUNTER 2018-10-21 20:46 | Emergency (ER) | payer OTHER ==
[~2018-10-21] VITALS: Wt 86.0 kg
[~2018-10-21 20:46] MED LIST changes: -CALC600T11 PO; +CALC600T24 PO; +GUAI1TBM12 PO; +IBUP-1542 PO
[2018-10-21 20:52] VITALS: BP 159/92; PULSE 88; RESP 18
--- NOTE | 2018-10-21 21:43 | ERD ---
ER Documentation Chief Complaint Chief Complaint COUGH X'S 2 DAYS HPI This is a 48-year-old female who presents emergency department with complaints of productive cough for about 5 days. Mother also stated that she has nasal congestion with nasal pain. Exposed to 1 year and 8-month-old boy who is also my patient here, being seen by myself in emergency department for cough and fever for about a week. LMP: 10/14/2018. A0. Denies headache, head injury, loss of consciousness, dizziness, neck pain, neck stiffness, throat pain, difficulty swallowing, difficulty breathing lying flat, shoulder pain, chest pain, back pain, abdominal pain, nausea, vomiting, constipation, diarrhea, urinary symptoms, or possibility being , loss of bowel and bladder control, trauma, injury, falls, difficulty walking due to pain, numbness or tingling sensation, calf pain, recent travel, recent major surgery in the last 3 weeks, calf pain, recent long travel, recent exposure to any illness, recent antibiotic use in the last 3 months, fever, chills, seizures. Past medical history: Surgical history: Social: Denies smoking, use of alcoholic beverages, use of illegal drugs. ROS All systems reviewed and are negative except as per history of present illness. Medications Home Meds Active Scripts Acetaminophen* (Tylophen*) 500 Mg Capsule, 1 CAP PO Q6H PRN for PAIN AND OR ELEVATED TEMP, #20 CAP Prov:BRENDAN RETANA 10/21/18 Amoxicillin* (Amoxicillin*) 500 Mg Cap, 500 MG PO TID for 10 Days, CAP Prov:BRENDAN RETANA F 10/21/18 Azithromycin* (Zithromax*) 250 Mg Tablet, 250 MG PO .ZPACK DIRECTED, #6 TAB TAKE 500 MG (2 TABS) THE FIRST DAY THEN 250 MG (1 TAB) DAYS 2-5 Prov:NATAILILABRENDAN CASTILLO F 10/21/18 Guaifenesin/Dextromethorphan (Mucinex Dm ER 1,200-60 mg Tab) 1 Each Tbmp.12hr, 1 EACH PO BID, #14 TAB Prov:MARTÍN SCHULZ MD 02/06/18 Ibuprofen* (Motrin*) 600 Mg Tab, 600 MG PO Q6, #15 TAB Prov:MARTÍN SCHULZ MD 7/8/18 Reported Medications Calcium Carbonate* (Calcium Carbonate*) 600 MG Ca Tab, 1 MG PO, TAB 12/25/16 Ferrous Sulfate (Iron) 325 Mg Capsule.er, 325 MG PO, CAP 12/25/16 Vit No.124/Iron/FA ( Vitamin Tablet) 1 Each Tablet, 1 EACH PO, TAB 11/18/16 Allergies Allergies: Coded Allergies: No Known Drug Allergy (Verified Allergy, Unknown, 12/25/16) PMhx/Soc Medical and Surgical Hx: pt denies Medical Hx Hx Neurological Disorder: No Hx Respiratory Disorders: No Hx Cardiac Disorders: No Hx Psychiatric Problems: No Hx Miscellaneous Medical Probl: No Hx Alcohol Use: No Hx Substance Use: No Hx Tobacco Use: No Smoking Status: Never smoker Physical Exam Vitals Physical Exam Const: No acute distress Head: Atraumatic Eyes: Normal Conjunctiva ENT: Normal External Ears, Nose and Mouth. There is frontal material sinus tenderness palpation. Bilateral ears: TMs are not erythematous. No bleeding. No discharge with no hearing loss with no mastoid tenderness. Throat: Uvula is in midline and nondisplaced with tonsils are +1 bilaterally without redness without exudates. Tolerating secretions with patent airway. Speaks full and clear sentences. No tripoding. Neck: Full range of motion. No meningismus. No nuchal rigidity. No signs of meningeal irritation. Resp: Clear to auscultation bilaterally. No accessory muscle use in breathing. Cardio: Regular rate and rhythm, no murmurs Abd: Soft, non tender, non distended. Normal bowel sounds Skin: No petechiae or rashes Back: No midline or flank tenderness Ext: No cyanosis, or edema Neur: Awake and alert. No neurological deficit. Psych: Normal Mood and Affect Results 24 hrs Current Medications Medications Dose Sig/Francie Start Time Status Last (Trade) Ordered Route PRN Stop Time Admin Dose Reason Admin 10 ml ONCE ONCE 10/21/18 DC Guaifenesin/ PO 22:00 Codeine 10/21/18 22:00 Phosphate (Robitussin Ac Liquid Cup) Procedures/MDM Diagnostic tests: Clinical exam. Treatment: Discontinued the Robitussin with codeine. Patient was observed breast-feeding. Re-evaluation: Denies chest pain. Lung sounds are clear to auscultation. Differential diagnosis I have low suspicion for sepsis, meningitis, peritonsillar abscess, mastoiditis, airway obstruction, bronchospasm, status asthmaticus, pneumonia, severe dehydration. Final diagnosis: Bronchitis. Sinusitis. Prescription: Amoxicillin. Azithromycin. Tylenol. Follow-up with PCP in the next 24-48 hours. Increase fluid intake at home. Come back here in the emergency department for any new symptoms or any worsening symptoms. All questions and concerns were answered. Patient and family members verbalized understanding and agreed with plan of care. Hemodynamically stable on discharge. Departure Diagnosis: Primary Impression: Cough Additional Impressions: Bronchitis Sinusitis Condition: Stable Additional Instructions: Follow-up with PCP in the next 24-48 hours. Increase fluid intake at home. Come back here in the emergency department for any new symptoms or any worsening symptoms. BRENDAN RETANA Oct 21, 2018 21:43
[2018-10-21] MEDS ORDERED: GUAIFENESIN/CODEINE 5ML CUP PO ONE (22:00)
[2018-10-21] MEDS ORDERED: ACET500C5 PO (22:05)
[2018-10-21] MEDS ORDERED: AMOX500C2 PO (22:05)
[2018-10-21] MEDS ORDERED: AZIT250T PO (22:05)
== END 2018-10-21 22:13 | disposition home or self-care (01) ==
LOC: FTE 20:46
DX: J40 Bronchitis, not specified as acute or chronic (principal); J32.9 Chronic sinusitis, unspecified
CPT/HCPCS: 99283